=== PATIENT | female | born 1980 | race Caucasian/White ===

== ENCOUNTER → 2017-12-08 | Outpatient (CLI) | payer OTHER ==
[~2017-12-08] MED LIST: ACYC200 PO; AZIT250 PO; FAMO20 PO; KETO10 PO; LORA1 PO; PARO20 PO; Percocet 10-321 EACH PO; Veetids 500500 MG PO
[2017-12-11 10:32] LABS: HPV Genotype 16 Not Detected (NOTDET); HPV Genotype 18 Not Detected (NOTDET)
[2017-12-11 12:34] LABS: HPV High Risk Other Not Detected (NOTDET)
== END | disposition home or self-care (01) ==
LOC: LAB 17:21 → LAB SHORT 17:21
PROVIDERS: Nurse Practitioner Primary Care
DX: Z01.419 Encounter for gynecological examination (general) (routine) without abnormal findings (principal)
CPT/HCPCS: 87491; 87529; 87591; 87624; G0123

== ENCOUNTER 2018-12-04 14:14 | Emergency (ER) | payer MEDICAID ==
[~2018-12-04] VITALS: Ht 162.6 cm; Wt 62.6 kg
[2018-12-04] MEDS ORDERED: HYDR1TAB94 PO (16:08)
[2018-12-04] MEDS ORDERED: CEPH500 PO (16:08)
[2018-12-04] MEDS ORDERED: Bactrim Ds Tab1 EACH PO (16:08)
== END 2018-12-04 16:26 | disposition home or self-care (01) ==
LOC: ER 14:14
DX: N75.0 Cyst of Bartholin's gland (principal); Z79.899 Other long term (current) drug therapy; F17.200 Nicotine dependence, unspecified, uncomplicated
CPT/HCPCS: 56420; 87070; 87075; 87077; 87147; 87186; 87205; 99283-25; A9270-GY

== ENCOUNTER 2022-05-21 20:22 | Emergency (ER) | payer OTHER ==
[~2022-05-21] VITALS: Ht 162.6 cm; Wt 63.5 kg
[~2022-05-21 20:22] MED LIST changes: +Bactrim Ds Tab1 EACH PO; +CEPH500 PO; +HYDR1TAB94 PO
[2022-05-21] MEDS ORDERED: Flagyl500 MG PO (22:34)
== END 2022-05-21 23:01 | disposition home or self-care (01) ==
LOC: ER 20:22
DX: K08.89 Other specified disorders of teeth and supporting structures (principal); N76.0 Acute vaginitis; F17.200 Nicotine dependence, unspecified, uncomplicated
CPT/HCPCS: 99282; A9270

== ENCOUNTER 2024-04-30 17:26 | Emergency (ER) | payer OTHER ==
[~2024-04-30] VITALS: Ht 162.6 cm; Wt 68.0 kg
[~2024-04-30 17:26] MED LIST changes: +Flagyl500 MG PO
[2024-04-30 17:37] VITALS: BP 128/81
[2024-04-30] MEDS ORDERED: Ketorolac Tromethamine 15mg Vial IM ONE (18:05)
== END 2024-04-30 19:06 | disposition home or self-care (01) ==
LOC: ER 17:26
DX: M22.11 Recurrent subluxation of patella, right knee (principal); F17.210 Nicotine dependence, cigarettes, uncomplicated
CPT/HCPCS: 29505; 73562-RT; 96372-59; 99283-25; J1885

== ENCOUNTER → 2025-04-21 | Outpatient (CLI) | payer OTHER ==
[2025-04-21 18:59] LABS: Candida Group, PCR NOT DETECTED (NOT DETECT); Candida glabrata-krusei, PCR NOT DETECTED (NOT DETECT)
[2025-04-21 19:17] LABS: Bacterial Vaginosis PCR Positive (NEGATIVE)
== END ==
LOC: LAB 15:51 → LAB SHORT 15:51
PROVIDERS: Student in an Organized Health Care Education/Training Program
DX: N76.0 Acute vaginitis (principal); B96.89 Other specified bacterial agents as the cause of diseases classified elsewhere
CPT/HCPCS: 81515